=== PATIENT | male | born 1995 | race Caucasian/White ===

== ENCOUNTER 2018-02-04 19:55 | Emergency (ER) | payer OTHER ==
[~2018-02-04] VITALS: Ht 170.2 cm; Wt 66.7 kg
[2018-02-04 20:02] VITALS: BP 143/80
[2018-02-04] MEDS ORDERED: ERYTHROMYCIN E3.5 G2 OPHTHALMIC (20:26)
[2018-02-04] MEDS ORDERED: NORCO 5-325 TA1 EAC1 PO (20:26)
[2018-02-04] MEDS ORDERED: CYCLOGYL2 M1 OPHTHALMIC (20:26)
== END 2018-02-04 20:35 | disposition home or self-care (01) ==
LOC: M.ERS 19:55
DX: S05.01XA Injury of conjunctiva and corneal abrasion without foreign body, right eye, initial encounter (principal); X58.XXXA Exposure to other specified factors, initial encounter; Y93.89 Activity, other specified; Y92.89 Other specified places as the place of occurrence of the external cause; Y99.8 Other external cause status